=== PATIENT | female | born 1955 | race Caucasian/White ===

== ENCOUNTER 2019-03-23 17:34 | Emergency (ER) | payer BC ==
[2019-03-23 17:55] VITALS: BP 162/100
[2019-03-23] MEDS ORDERED: predniSONE 20 MG TABLET PO STA (18:25)
--- NOTE | 2019-03-23 18:27 | ED Physician Documentation ---
PD HPI SKIN - Stated complaint Stated Complaint: BLISTER ON LEG - Chief complaint Chief Complaint: Wound - History obtained from History obtained from: Patient - History of Present Illness Timing - onset: Yesterday (Working the yard yesterday she felt like she got bug bites in the ankles and then today developed a blister on the right posterior ankle. No fevers.) Review of Systems Constitutional: denies: Fever, Chills Respiratory: denies: Dyspnea, Cough GI: denies: Abdominal Pain PD PAST MEDICAL HISTORY - Past Medical History Past Medical History: No - Past Surgical History Past Surgical History: Yes - Present Medications Home Medications: Ambulatory Orders Medication Instructions Recorded Confirmed predniSONE [Deltasone] 60 mg PO DAILY 5 Days tablet 03/23/19 - Allergies Allergies/Adverse Reactions: Allergies Allergy/AdvReac Type Severity Reaction Status Date / Time Penicillins Allergy Itching Verified 03/23/19 17:55 - Social History Does the pt smoke?: No Smoking Status: Former smoker Does the pt drink ETOH?: No Does the pt have substance abuse?: No - Immunizations Immunizations are current?: Yes - POLST Patient has POLST: No PD ED PE NORMAL - Vitals Vital signs reviewed: Yes - General General: Alert and oriented X 3, No acute distress - Extremities Extremities: Other (There is several inflamed-looking patches on the ankles with negative Nikolsky sign and one 1 cm intact blister to the Achilles tendon. It was deroofed and debrided during examination. No purulent fluid.) - Neuro Neuro: Alert and oriented X 3, Normal speech Results - Vitals Vitals: Vital Signs - 24 hr 03/23/19 17:52 Temperature 36.1 C L Heart Rate 109 H Respiratory 16 Rate Blood Pressure 162/100 H O2 Saturation 99 Oxygen O2 Source Room air Departure - Departure Disposition: Home, Self Care Clinical Impression: Dermatitis Condition: Good Record reviewed to determine appropriate education?: Yes Health Concerns: skin issue Plan of Treatment: Nonspecific dermatitis the ankle with one area of bulla formation. Will place on Steroids. The one bulla was opened during examination and dressed. Return if worse. Follow-up with your doctor for persistent issues. Care Goals: improve inflammation Assessment: as above Instructions: ED Dermatitis Contact Prescriptions: predniSONE [Deltasone] 60 mg PO DAILY 5 Days tablet
== END 2019-03-23 18:31 | disposition home or self-care (01) ==
LOC: ED 17:34
DX: L30.9 Dermatitis, unspecified (principal); S90.521A Blister (nonthermal), right ankle, initial encounter; X58.XXXA Exposure to other specified factors, initial encounter; Y93.H9 Activity, other involving exterior property and land maintenance, building and construction; Y92.007 Garden or yard of unspecified non-institutional (private) residence as the place of occurrence of the external cause; Z87.891 Personal history of nicotine dependence
CPT/HCPCS: 99283; J7512

== ENCOUNTER 2021-04-09 04:59 | Emergency (ER) | payer BC ==
[2021-04-09 05:40] LABS: BASOPHILS # (AUTO) 0.1 10^3/uL (0.0-0.1); BASOPHILS % (AUTO) 0.7 %; EOSINOPHILS # (AUTO) 0.1 10^3/uL (0.0-0.7); EOSINOPHILS % (AUTO) 1.2 %; HCT - HEMATOCRIT 38.8 % (37.0-47.0); HGB - HEMOGLOBIN 13.2 g/dL (12.0-16.0); LYMPHOCYTES # (AUTO) 1.4 10^3/uL (1.5-3.5); LYMPHOCYTES % (AUTO) 21.5 %; MEAN CORPUSCULAR HEMOGLOBIN 30.6 pg (27.0-31.0); MEAN PLATELET VOLUME 8.9 fL (7.9-10.8); MONOCYTES # (AUTO) 0.4 10^3/uL (0.0-1.0); NEUTROPHILS # (AUTO) 4.7 10^3/uL (1.5-6.6); NEUTROPHILS % (AUTO) 70.5 %; PLT - PLATELET COUNT 316 10^3/uL (130-450); RED BLOOD COUNT 4.31 10^6/uL (4.20-5.40); RED CELL DISTRIBUTION WIDTH 12.3 % (12.0-15.0); WHITE BLOOD COUNT 6.7 x10^3/uL (4.8-10.8)
[2021-04-09] MEDS ORDERED: BENZOCAINE/MENTHOL LOZENGE MM STA (05:40)
[2021-04-09] MEDS ORDERED: SODIUM CHLORIDE 0.9% 1,000 ML IV STA (05:41)
[2021-04-09] MEDS ORDERED: guaiFENesin/DEXTROMETHORPHAN 10 ML UDC PO STA (05:42)
[2021-04-09] MEDS ORDERED: OXYMETAZOLINE HCL 100 SPRAYS BOTTLE NAS STA (05:42)
[2021-04-09] MEDS ORDERED: METOCLOPRAMIDE 10 MG/2 ML VIAL IVP STA (05:43)
[2021-04-09] MEDS ORDERED: diphenhydrAMINE INJ 50 MG/ML VIAL IVP STA (05:44)
--- NOTE | 2021-04-09 05:51 | ED Physician Documentation ---
History of Present Illness - Stated complaint Stated Complaint: HBP/RHR/WALSH - Chief complaint Chief Complaint: Cardiac - History obtained from History obtained from: Patient, Family () - Additonal information Additional information: 66-year-old woman with history of high blood pressure on lisinopril 12.5 mg daily presents with bilateral occipital headache gradual in onset at 7 PM last night, progressively worsening and radiating to the posterior neck, constant, associated with nausea, worse with cough. Of note, patient has had a nonproductive cough for the past month on and off associated with rhinorrhea, sinus congestion, and progressive chest congestion and subjective shortness of breath. Patient also has ear fullness and ringing. +intermittent lightheadedness Review of Systems Ten Systems: 10 systems reviewed and negative Constitutional: reports: Fatigue. denies: Fever, Chills Ears: reports: Tinnitus/ringing, Other (ear fullness) Nose: reports: Rhinorrhea / runny nose, Congestion Throat: reports: Other (tickling in throat) Cardiac: reports: Palpitations. denies: Chest pain / pressure Respiratory: reports: Dyspnea, Cough GI: reports: Nausea. denies: Vomiting PD PAST MEDICAL HISTORY - Past Medical History Past Medical History: Yes Cardiovascular: Hypertension - Past Surgical History Past Surgical History: Yes General: Other - Present Medications Home Medications: Ambulatory Orders Medication Instructions Recorded Confirmed Estrogen,Con/M-Progest Acet 1 each PO DAILY 04/09/21 04/09/21 [Prempro 0.625-2.5 mg Tablet] Losartan Potassium 12.5 mg PO DAILY 04/09/21 04/09/21 - Allergies Allergies/Adverse Reactions: Allergies Allergy/AdvReac Type Severity Reaction Status Date / Time Penicillins Allergy Itching Verified 04/09/21 05:22 - Social History Does the pt smoke?: No Smoking Status: Never smoker Does the pt drink ETOH?: No Does the pt have substance abuse?: No - Immunizations Immunizations are current?: Yes - POLST Patient has POLST: No PD ED PE NORMAL - Vitals Vital signs reviewed: Yes - General General: Alert and oriented X 3, No acute distress, Well developed/nourished - HEENT HEENT: Atraumatic, PERRL, EOMI, Ears normal, Moist mucous membranes, Pharynx benign, Other (+nasal congestion) - Neck Neck: Supple, no meningeal sign - Cardiac Cardiac: Other (borderline tachycardic rate, regular rhythm) - Respiratory Respiratory: No respiratory distress, Clear bilaterally - Abdomen Abdomen: Non tender, Non distended - Back Back: No CVA TTP - Derm Derm: Normal color - Extremities Extremities: No deformity - Neuro Neuro: Alert and oriented X 3, cell biologist 2-12 intact, No motor deficit, No sensory deficit, Normal speech, Other (normal strength, gait, and cerebellar testing) - Psych Psych: Normal mood, Normal affect Results - Vitals Vitals: Vital Signs - 24 hr 04/09/21 04/09/21 04/09/21 05:00 05:05 05:34 Temperature 36.1 C L Heart Rate 102 H 107 H Respiratory 28 H 15 Rate Blood Pressure 158/98 H 157/108 H Blood Pressure 158/98 H [Left] O2 Saturation 98 98 04/09/21 06:38 Temperature Heart Rate 104 H Respiratory 20 Rate Blood Pressure 159/111 H Blood Pressure [Left] O2 Saturation 99 Oxygen O2 Source Room air - EKG (time done) 0500 Rate: Rate (enter#) (110) Rhythm: Sinus tachycardia Gilbert: Normal Intervals: Normal VT QRS: Normal Ischemia: Normal ST segments - Labs Labs: Laboratory Tests 04/09/21 04/09/21 04/09/21 05:15 05:15 05:15 WBC 6.7 RBC 4.31 Hgb 13.2 Hct 38.8 MCV 90.0 MCH 30.6 MCHC 34.0 RDW 12.3 Plt Count 316 MPV 8.9 Neut # (Auto) 4.7 Lymph # (Auto) 1.4 L Alfalfa # (Auto) 0.4 Eos # (Auto) 0.1 Baso # (Auto) 0.1 Absolute Nucleated RBC 0.00 Nucleated RBC % 0.0 Sodium 135 Potassium 3.7 Chloride 100 L Carbon Dioxide 25 Anion Gap 10.0 BUN 12 Creatinine 0.6 Estimated GFR (MDRD) 100 Glucose 118 H Calcium 8.9 Total Bilirubin 0.7 AST 19 ALT 27 Alkaline Phosphatase 34 L Troponin I High Sens 2.5 Total Protein 7.2 Albumin 4.3 Globulin 2.9 Albumin/Globulin Ratio 1.5 Lipase 21 L PD MEDICAL DECISION MAKING - ED course ED course: 66-year-old woman presented with new onset bilateral occipital headache since 7 PM, gradual in onset and currently a 6 out of 10. She has never had a headache like this before. Also with persistent URI sx X 1 month. We will treat symptomatically, obtain CT given red flag features of age greater than 50, new atypical pattern for new headache, and pain precipitated/worsening by coughing. Chest xray noncontributory. 6:30am - patient feeling significantly better s/p symptomatic care. headache improved significantly. she has ENT appointment this upcoming tuesday. return precautions given. Departure - Departure Disposition: Home, Self Care Clinical Impression: Cough, Sinus congestion, Headache Condition: Good Instructions: ED URI Viral Comments: You are seen in the emergency department for headache and symptoms concerning for viral upper respiratory infection versus allergies. Your CTA of the head was normal. You were treated with Reglan, IV fluids, guaifenesin and dextromethorphan, cepacol, oxymetazoline spray with improvement. Please follow- up with ENT this Tuesday. Return to the emergency department if you have any new or worsening symptoms or other concerns
[2021-04-09 05:56] LABS: ALBUMIN 4.3 g/dL (3.2-5.5); ALBUMIN/GLOBULIN RATIO 1.5 (1.0-2.2); BILIRUBIN,TOTAL 0.7 mg/dL (0.2-1.0); CALCIUM 8.9 mg/dL (8.5-10.3); CREATININE 0.6 mg/dL (0.4-1.0); POTASSIUM 3.7 mmol/L (3.5-5.0); TOTAL PROTEIN 7.2 g/dL (6.7-8.2)
[2021-04-09] MEDS ORDERED: IOVERSOL 320 100 ML VIAL IVP ONE ×2 (05:57→06:34)
[2021-04-09 06:40] VITALS: BP 159/111
--- NOTE | 2021-04-09 07:11 | CT Report ---
PROCEDURE: ANGIO HEAD W/WO INDICATIONS: occipital headache, lightheadedness CONTRAST: IV CONTRAST: Optiray 320 ml: 80 PO CONTRAST: *NO PO CONTRAST TECHNIQUE: Precontrast 4.5 mm thick angled axial sections acquired from the foramen magnum to the vertex. Afte r the administration of intravenous contrast, 1 mm thick sections acquired through the [place] of Will is. Postcontrast 4.5 mm thick sections then re-acquired from the foramen magnum to the vertex. 3-di mensional hufgnxv-lgqpcsxfu-dlfpjrgfky (MIP) and/or volume rendering reformats were acquired of the c entral intracranial vasculature. For radiation dose reduction, the following was used: automated ex posure control, adjustment of mA and/or kV according to patient size. COMPARISON: None FINDINGS: Image quality: Excellent. Anterior circulation: Intracranial internal carotid arteries are normal in size and flow. The flow within the paired anterior cerebral arteries is normal and symmetric. The flow within the middle cer ebral arteries is normal and symmetric. The anterior communicating artery is seen. No aneurysms are seen. Posterior circulation: Visualized portions of the vertebral arteries demonstrate normal caliber, and join to form a normal appearing basilar artery. Flow within the posterior cerebral arteries is norm al and symmetric. No aneurysms are seen. Dural sinuses demonstrate normal postcontrast enhancement. CSF spaces: Ventricles are normal in size and shape. Basal cisterns are patent. No extra-axial flu id collections. Brain: No midline shift. No intracranial bleeds or masses. Carroll-white matter interface appears int act. Skull and face: Calvarium and facial bones appear intact, without suspicious lesions. Sinuses: Visualized sinuses and mastoids are clear. IMPRESSION: 1. No acute intracranial disease process. 2. No large vessel occlusion, vascular stenosis, vascular dissection or aneurysm. Reviewed by: Cynthia Gale MD, PhD on 04/09/2021 7:10 AM PDT Approved by: Cynthia Gale MD, PhD on 04/09/2021 7:10 AM PDT Station ID: [id number]
--- NOTE | 2021-04-09 07:52 | XRAY Report ---
PROCEDURE: Chest 1 View X-Ray INDICATIONS: Chest pain TECHNIQUE: One view of the chest was acquired. COMPARISON: None FINDINGS: Surgical changes and devices: None. Lungs and pleura: No pleural effusions or pneumothorax. Lungs are clear. Mediastinum: Mediastinal contours appear normal. Heart size is normal. Bones and chest wall: No suspicious bony lesions. Overlying soft tissues appear unremarkable. IMPRESSION: No evidence acute pulmonary process. A preliminary report with the above findings was provided at the time of the study by [facility]. Reviewed by: Devon Carter MD on 04/09/2021 7:50 AM PDT Approved by: Devon Carter MD on 04/09/2021 7:50 AM PDT Station ID: [id number]
== END 2021-04-09 06:55 | disposition home or self-care (01) ==
LOC: ED 04:59
DX: R51.9 Headache, unspecified (principal); R05 Cough; R09.81 Nasal congestion; I10 Essential (primary) hypertension
CPT/HCPCS: 36415; 70496; 71045; 80053; 83690; 84484; 85025; 93005; 96374; 96375; 99284; A9270; J1200; J2765; Q9967